=== PATIENT | male | born 1955 | race African-American/Black ===

== ENCOUNTER 2019-02-26 22:04 | Emergency (ER) | payer OTHER ==
[~2019-02-26] VITALS: Ht 188 cm; Wt 116.6 kg
[2019-02-26] MEDS ORDERED: SENNA-DOCUSATE1 EAC1 PO (22:57)
[2019-02-26] MEDS ORDERED: NORCO 5-325 TA1 EAC1 PO (22:57)
[2019-02-26] MEDS ORDERED: METHOCARBAMOL500 M2 PO (22:57)
[2019-02-26 23:36] VITALS: BP 164/106
== END 2019-02-26 23:36 | disposition home or self-care (01) ==
LOC: ER 22:04
DX: S00.01XA Abrasion of scalp, initial encounter (principal); M54.2 Cervicalgia; I10 Essential (primary) hypertension; E11.9 Type 2 diabetes mellitus without complications; M10.9 Gout, unspecified; W00.2XXA Other fall from one level to another due to ice and snow, initial encounter; Y93.89 Activity, other specified; Y92.89 Other specified places as the place of occurrence of the external cause; Y99.8 Other external cause status